=== PATIENT | male | born 1980 | race African-American/Black ===

== ENCOUNTER 2024-05-22 06:33 | Emergency (ER) | payer SELFPAY ==
[2024-05-22] MEDS: Ketorolac 15 MG/ML SDV IVPUSH ONE (07:25)
[2024-05-22] MEDS: Sodium Chloride 0.9% 1,000 ML IV ONE (07:27)
[2024-05-22] MEDS: Sodium Chloride 0.9% 10 ML Syringe FLUSH PRN (07:28)
[2024-05-22 07:37] LABS: APPEARANCE,URINE CLEAR (Clear); BASOPHILS PERCENT AUTO 0.2 % (0.0-1.0); BILIRUBIN,URINE NEGATIVE (Negative); COLOR,URINE YELLOW (Yellow); EOSINOPHILS PERCENT AUTO 0.4 % (0.0-6.0); GLUCOSE,URINE NEGATIVE (Negative); HEMATOCRIT 45.7 % (42.0-52.0); HEMOGLOBIN 14.4 gm/dl (14.0-18.0); IMMATURE GRAN ABSOLUTE AUTO 0.06 K/mm3 (0.00-0.05); IMMATURE GRAN PERCENT AUTO 0.6 % (0.0-0.4); KETONES,URINE NEGATIVE (Negative); LEUKOCYTE ESTERASE,URINE NEGATIVE (Negative); LYMPHOCYTES ABSOLUTE AUTO 1.8 K/mm3 (1.0-4.8); LYMPHOCYTES PERCENT AUTO 18.2 % (24.0-44.0); MEAN CORPUSCULAR HEMOGLOBIN 27.2 pg (28.0-32.0); MEAN CORPUSCULAR HGB CONC 31.5 g/dl (32.0-36.0); MEAN CORPUSCULAR VOLUME 86.2 fl (83.0-99.0); MEAN PLATELET VOLUME 10.8 fl (9.4-12.4); MONOCYTES ABSOLUTE AUTO 0.8 K/mm3 (0.0-0.8); MONOCYTES PERCENT AUTO 7.6 % (0.0-8.0); NEUTROPHILS ABSOLUTE AUTO 7.3 K/mm3 (1.8-7.7); NITRITE,URINE NEGATIVE (Negative); OCCULT BLOOD,URINE NEGATIVE (Negative); PH,URINE 7.5 (5.0-8.0); PLATELET COUNT,PLT 258 K/mm3 (150-400); PROTEIN,URINE NEGATIVE (Negative); UROBILINOGEN,URINE 0.2 (0.2-1.0); WHITE BLOOD CELL COUNT,WBC 9.93 K/mm3 (3.9-11.3)
[2024-05-22] MEDS: Iopamidol 612 MG/ML 100 ML Bottle IVPUSH ONE (07:38)
[2024-05-22 08:04] LABS: ANION GAP 10.7 (5-15); BILIRUBIN TOTAL 0.4 mg/dL (0.2-1.0); BUN/CREATININE RATIO 12.5 (14-18); CREATININE 1.2 mg/dL (0.7-1.3); EST CRCL DRUG DOSING (CG) 75.21 mL/min; POTASSIUM,K 3.7 mEq/L (3.5-5.1); PROTEIN TOTAL,TP 7.9 g/dl (6.4-8.2)
== END 2024-05-22 08:50 | disposition home or self-care (01) ==
LOC: JD.ED 06:33
DX: N13.2 Hydronephrosis with renal and ureteral calculous obstruction (principal); Z79.899 Other long term (current) drug therapy; Z86.16 Personal history of COVID-19
CPT/HCPCS: 36415; 74177; 80053; 81003; 83690; 85025; 96374; 99284; J1885; J3490; J7030; Q9967